=== PATIENT | male | born 1930 | race Caucasian/White ===

== ENCOUNTER → 2016-04-10 | Outpatient (CLI) | payer MEDICARE, OTHER ==
[~2016-04-10] MED LIST: AMOXICILLIN875 MG PO; ATIVAN 0.50.5 MG/TAB PO; ATIVAN 1MG T1 MG/TAB PO; AVAPRO TAB150 MG/TAB PO; AVAPRO300 M1 PO; BETAPACE 80MG80 MG PO; CARDIZEM CD 18180 MG PO; CARTIA XT120 MG PO; CARTIA XT180 MG PO; CEPHALEXIN250 M1 PO; CEPHALEXIN500 M1 PO; CIPRO 250MG TA250 MG PO; CORDARONE200 MG/TAB PO; COUMADIN 4MG4 MG/TAB PO; COUMADIN 5MG5 MG/TAB PO; COUMADIN PO; COUMADIN3 MG PO; COUMADIN4 MG PO; COZAAR100 MG PO; DILTIAZEM CD120 MG PO; DIOVAN160 M1 PO; ELIQUIS 5MG PO; FLOMAX 0.40.4 MG/CAP PO; GLUCOSAMINE PO; HCTZ 25MG25 MG PO; IRON TABLETS325 MG PO; IRON250 MG PO; LASIX 20MG TABL20 MG PO; LASIX 40MG TABL40 MG PO; LOVENOX 8080 MG/0.8 SQ; METOPROLOL SUCC50 M2 PO; NORVASC 5MG5 MG/TAB PO; NORVASC5 MG PO; PACERONE400 MG PO; PRIL40 PO; PRILOSEC 20MG20 MG PO; PRILOSEC40 MG PO; PROAIR HFA0.09 MG/AC IH; REMERON SOLTAB15 MG PO; TAMBOCOR 1100 MG/TAB PO; TIKOSYN0.5 MG PO; TYLENOL 500MG500 MG PO; ULTRAM 50MG TAB50 MG PO; VITAMIN C500 MG PO; VTAMINC250TA; VTAMINC250TA PO; WARFARIN4 MG PO; XARELTO20 MG PO; ZOLOFT 25MG25 MG PO; ZOLOFT 50MG50 MG PO
== END ==
LOC: COL.VAS 10:00
DX: M79.662 Pain in left lower leg (principal); M79.661 Pain in right lower leg; M79.89 Other specified soft tissue disorders

== ENCOUNTER 2016-05-16 08:11 | Day surgery (SDC) | payer MEDICARE, OTHER ==
[2007-03-02 17:04] VITALS: BP 148/93
[2016-05-16] VITALS (13 sets, daily range): BP systolic 147–177; BP diastolic 87–128; PULSE 69–82; TEMP 97.5
[~2016-05-16] VITALS: Ht 182.9 cm; Wt 77.3 kg
[~2016-05-16 08:11] MED LIST changes: -ELIQUIS 5MG PO; -IRON TABLETS325 MG PO
[2016-05-16 08:57] LABS: INR 1.7 (0.8-3.0); PROTHROMBIN TIME 19.1 SECONDS (9.7-12.8)
[2016-05-16] MEDS ORDERED: ELIQUIS 5MG PO (09:08)
[2016-05-16 09:10] LABS: POTASSIUM 4.3 mmol/L (3.4-5.0)
[2016-05-16 09:45] LABS: THYROID STIMULATING HORMONE 5.35 uIU/mL (0.465-4.680)
== END 2016-05-16 12:10 | disposition home or self-care (01) ==
LOC: EUO 08:11
PROVIDERS: Internal Medicine Interventional Cardiology
DX: I48.91 Unspecified atrial fibrillation (principal); I34.0 Nonrheumatic mitral (valve) insufficiency; I36.1 Nonrheumatic tricuspid (valve) insufficiency; Z95.0 Presence of cardiac pacemaker; Z87.891 Personal history of nicotine dependence
CPT/HCPCS: J2250; J3010; J7030

== ENCOUNTER 2016-05-31 13:07 | Emergency (ER) | payer MEDICARE, OTHER ==
[2007-03-02 17:04] VITALS: BP 148/93
[~2016-05-31] VITALS: Ht 182.9 cm; Wt 70.9 kg
[~2016-05-31 13:07] MED LIST changes: +ELIQUIS 5MG PO
[2016-05-31 13:09] VITALS: BP 138/78; TEMP 97.8
[2016-05-31] MEDS ORDERED: IRON TABLETS325 MG PO (13:47)
[2016-05-31 15:36] LABS: BASO % 0.7 % (0.0-2.0); EOS # 0.1 (0.0-0.7); EOS % 1.2 % (0-4.0); GRAN # 3.6 (1.4-6.5); GRAN % 59.3 % (42.2-75.2); LYMPH # 1.6 (1.2-3.4); LYMPH % 26.5 % (20.0-51.0); MEAN CELL VOLUME 85 fl (80.0-100.0); MEAN CORPUSCULAR HEMOGLOBIN 27 pg (27.0-31.0); MEAN CORPUSCULAR HGB CONC 31 g/dl (33.0-37.0); MEAN PLATELET VOLUME 9.1 fl (7.4-10.4); MONO # 0.7 (0.1-0.6); PLATELET COUNT 228 K/mm3 (130-400); RED BLOOD COUNT 4.46 M/mm3 (4.20-5.60); REDCELL DISTRIBUTION WIDTH-CV 18.3 % (11.5-14.5)
[2016-05-31 15:37] LABS: HEMOGLOBIN 11.9 g/dl (13.5-18.0)
[2016-05-31 15:50] LABS: CALCIUM 10.2 mg/dL (8.4-10.2); CREATININE, serum 1.25 mg/dL (0.66-1.25); POTASSIUM 4.6 mmol/L (3.4-5.0)
[2016-05-31 16:25] VITALS: PULSE 73
== END 2016-05-31 16:25 | disposition home or self-care (01) ==
LOC: COL.ER 13:07
PROVIDERS: Emergency Medicine
DX: S51.812A Laceration without foreign body of left forearm, initial encounter (principal); S61.411A Laceration without foreign body of right hand, initial encounter; R51 Headache; W06.XXXA Fall from bed, initial encounter; Y92.122 Bedroom in nursing home as the place of occurrence of the external cause; Z79.01 Long term (current) use of anticoagulants; Z23 Encounter for immunization

== ENCOUNTER 2016-06-02 09:20 | Emergency (ER) | payer MEDICARE, OTHER ==
[2007-03-02 17:04] VITALS: BP 148/93
[~2016-06-02] VITALS: Ht 182.9 cm; Wt 75.0 kg
[~2016-06-02 09:20] MED LIST changes: +IRON TABLETS325 MG PO
[2016-06-02 09:53] VITALS: BP 96/68; PULSE 75; TEMP 97.9
== END 2016-06-02 10:42 | disposition home or self-care (01) ==
LOC: COL.ER 09:20
DX: S51.812D Laceration without foreign body of left forearm, subsequent encounter (principal); S41.111D Laceration without foreign body of right upper arm, subsequent encounter; X58.XXXD Exposure to other specified factors, subsequent encounter

== ENCOUNTER → 2016-06-12 | Emergency (ER) | payer MEDICARE, OTHER ==
[2016-06-12 13:57] VITALS: BP 145/89; PULSE 83; TEMP 97.8
== END | disposition home or self-care (01) ==
LOC: COL.ER 13:53
DX: Z48.01 Encounter for change or removal of surgical wound dressing (principal)

== ENCOUNTER 2016-06-30 13:10 | Emergency (ER) | payer MEDICARE, OTHER ==
[2016-06-30 13:40] VITALS: PULSE 86
== END 2016-06-30 13:40 | disposition home or self-care (01) ==
LOC: COL.ER 13:10
DX: Z48.02 Encounter for removal of sutures (principal)

== ENCOUNTER → 2018-01-21 | Outpatient (CLI) | payer MEDICARE, OTHER | LOC: COL.RAD 11:00 | DX: J47.9 Bronchiectasis, uncomplicated (principal); I51.7 Cardiomegaly; Z95.0 Presence of cardiac pacemaker ==

== ENCOUNTER → 2018-02-05 | Outpatient (CLI) | payer MEDICARE, OTHER | LOC: COL.PUL 07:55 | DX: R06.02 Shortness of breath (principal); Z87.891 Personal history of nicotine dependence ==

== ENCOUNTER 2018-10-20 10:37 | Day surgery (SDC) | payer MEDICARE, OTHER ==
[2007-03-02 17:04] VITALS: BP 148/93
[~2018-10-20] VITALS: Ht 185.4 cm; Wt 81.3 kg
[2018-10-20] VITALS (11 sets, daily range): BP systolic 128–157; BP diastolic 81–95; PULSE 70–92; TEMP 68.2–98.7
[2018-10-20] MEDS ORDERED: ELIQUIS 2.5 PO (11:48)
[2018-10-20] MEDS ORDERED: LASIX 40MG TABL40 MG PO (11:49)
[2018-10-20] MEDS ORDERED: COZAAR 50MG50 MG/TAB PO (11:51)
[2018-10-20] MEDS ORDERED: LOPRESSOR 225 MG/TAB PO (11:52)
[2018-10-20] MEDS ORDERED: REMERON 15M15 MG/TA1 PO (11:53)
[2018-10-20] MEDS ORDERED: PROBIOTIC-SUNMARK PO (11:55)
--- NOTE | 2018-10-20 20:00 | NUR ---
HS meds all reviewed and given. Refused lasix as is too late in the evening to take. Med held acknowleged to pharmacy to change times to as he takes at home. Declines pain med at this time. Incision abdomin with swif set and approximated some bruising noted. Ambulates to sink and back to chair. Items given for oral care.
--- NOTE | 2018-10-20 22:00 | NUR ---
Rests in bed with eyes closed. Respirations with ease.
--- NOTE | 2018-10-21 02:19 | NUR ---
Patient reports just woke up anxious. Reports 5/10 headache and normally doesn't get headaches. Has requested not to take pain med but offered tylenol and given. Hand senior applications developer equal. Leg strength lifts and holds briefly/difficult because of abdominal incisional pain. Speech clear and patient is alert and oriented x 4. VSS. BP 128/81 HRR. Lungs CTA. Reviewed will reevaluate headache in 1 hour and recheck vitals in 2 hours. SCD's on and instructed to call and staff will remove prior to getting up.
--- NOTE | 2018-10-21 02:24 | NUR ---
Patient has been resting on left side with eyes closed on hourly rounds. CPAP on.
--- NOTE | 2018-10-21 03:00 | NUR ---
Patient rests with eyes closed. Respirations with ease.
[2018-10-21 04:11] VITALS: BP 138/77; PULSE 81; TEMP 98
--- NOTE | 2018-10-21 04:27 | NUR ---
Patient woke up and states didn't know where he was at first. "Reaching for my steering wheel and couldn't reach it". Patient oriented except to time of day states 4pm instead of 4am. Hand social science analyst equal speech clear. INT bleeding and area cleansed with alcohol and new tegerm applied followed by coban. Denies headache at this time. petroleum terminal plant operator memory intact-reminices. VSS. Denies dizziness. Bed alarm applied at this time. "just not real steady on my feet" "back problems".
--- NOTE | 2018-10-21 04:39 | NUR ---
Nurse had patient sit up and stand/ambulate short distance and does without difficulty/no drift or weakness noted. Leg strength equal.
--- NOTE | 2018-10-21 05:15 | NUR ---
Patient resting with eyes closed. Awakened for med and returns to resting.
[2018-10-21 07:45] VITALS: BP 135/75; PULSE 80; TEMP 97.7
--- NOTE | 2018-10-21 08:00 | NUR ---
Patient sitting up in recliner, alert and oriented x 3. Daughter at bedside. Patient requested pain medications for abdominal pain, medications given per orders. Incision to left quadrant with edges well approximated. Patient states he is passing gas. Has been up ambulating with stand by assist, steady gait. Denies further needs at this time.
--- NOTE | 2018-10-21 10:40 | NUR ---
Discharge instructions provided to patient. Educated on signs and symptoms of infection and when to call provider. Provided patient with follow up appointment. All questions answered. Verbalized understanding. Denies further needs at this time. Patient out by wheelchair with surgical staff and daughter. INT to left hand discontinued, catheter tip intact. Pressure held to site and pressure dressing applied.
== END 2018-10-21 10:40 | disposition home or self-care (01) ==
LOC: SDCO 10:37 → SURG 13:25 → SDCO 10-21 10:40
DX: K40.90 Unilateral inguinal hernia, without obstruction or gangrene, not specified as recurrent (principal); D17.6 Benign lipomatous neoplasm of spermatic cord; E78.00 Pure hypercholesterolemia, unspecified; G47.33 Obstructive sleep apnea (adult) (pediatric); I11.0 Hypertensive heart disease with heart failure; I50.9 Heart failure, unspecified; J44.9 Chronic obstructive pulmonary disease, unspecified; I48.0 Paroxysmal atrial fibrillation; K21.9 Gastro-esophageal reflux disease without esophagitis; Z85.51 Personal history of malignant neoplasm of bladder; Z85.828 Personal history of other malignant neoplasm of skin; Z86.73 Personal history of transient ischemic attack (TIA), and cerebral infarction without residual deficits; Z96.651 Presence of right artificial knee joint; Z95.0 Presence of cardiac pacemaker; Z80.0 Family history of malignant neoplasm of digestive organs; Z79.01 Long term (current) use of anticoagulants
CPT/HCPCS: OP; C1781; J0690; J2704; J3010; J7120

== ENCOUNTER → 2020-03-08 | Outpatient (CLI) | payer MEDICARE, OTHER ==
[~2020-03-08] MED LIST changes: +COZAAR 50MG50 MG/TAB PO; +ELIQUIS 2.5 PO; +LOPRESSOR 225 MG/TAB PO; +PROBIOTIC-SUNMARK PO; +REMERON 15M15 MG/TA1 PO
[2020-03-08 16:02] LABS: CALCIUM 10.1 mg/dL (8.4-10.2); CREATININE, serum 2.47 (0.66-1.25); POTASSIUM 4.2 mmol/L (3.4-5.0)
[2020-03-08 16:14] LABS: TROPONIN-I 0.012 ng/mL (0.000-0.035)
== END ==
LOC: ZCOL.LAB 15:43
PROVIDERS: Nurse Practitioner
DX: R60.9 Edema, unspecified (principal); R07.89 Other chest pain; R63.1 Polydipsia

== ENCOUNTER → 2020-04-19 | Outpatient (CLI) | payer MEDICARE, OTHER ==
[2020-04-19 15:35] LABS: INR 1.7 (0.8-3.0); PROTHROMBIN TIME 19.2 SECONDS (9.7-12.8)
== END ==
LOC: ZCOL.LAB 15:13
PROVIDERS: Nurse Practitioner
DX: I50.22 Chronic systolic (congestive) heart failure (principal)

== ENCOUNTER 2020-04-24 18:07 | Inpatient (IN) | payer MEDICARE, OTHER ==
[2007-03-02 17:04] VITALS: BP 148/93
[2020-04-24] VITALS (109 sets, daily range): BP systolic 120; BP diastolic 89; PULSE 82; TEMP 98.1; O2SAT 90–100
[~2020-04-24] VITALS: Ht 185.4 cm; Wt 87.6 kg
--- NOTE | 2020-04-24 19:00 | NUR ---
Patient was direct admit to unit for Afib w/ RVR. Arrive to unit in a wheelchair accompanied by daughter, Victoria. biscuit factory worker notified Dr. Slade of patient arrival to unit. Will resume care at this time.
--- NOTE | 2020-04-24 20:00 | NUR ---
Nurse completing admission assessment and obtaining information from patient and patient daughter Victoria. Nurse received call from Blanca Sheridan APRN who stated she would be putting in orders for patient as no orders had been received yet. Nurse asked CERTIFIED LEGAL SECRETARY SPECIALIST if Dr. Slade's office would like hospitalist to join patients case. CERTIFIED LEGAL SECRETARY SPECIALIST stated they did not wish for hospitalist to consult on case. Nurse gave update on patient status. CERTIFIED LEGAL SECRETARY SPECIALIST stated Dr. Slade would not be coming by to see patient but CERTIFIED LEGAL SECRETARY SPECIALIST would be by "first thing in the morning."
--- NOTE | 2020-04-24 20:28 | NUR ---
Dr. Slade arrived on unit to examine patient and spoke to both patient and patients daughter. Dr. Slade stated he would like hospitalist to admit and join patient case. No orders were placed or received at this time.
--- NOTE | 2020-04-24 21:00 | NUR ---
Nurse attempted to place an IV in patient right forearm and had two unsuccessful attempts. Nurse was able to place 22g IV in patients LW successfully and 20g in LF. IV's were able to flush and had blood return. IVs remained saline locked at this time.
--- NOTE | 2020-04-24 21:17 | NUR ---
Received call from STEFANIE Rios who wanted to clarify that orders had been received on patient. Nurse stated she had received orders for dobutamine and nitro gtt to be started.
[2020-04-24 21:25] LABS: BASO # 0.1 (0.0-0.2); BASO % 1.1 % (0.0-2.0); EOS # 0.3 (0.0-0.7); EOS % 4.6 % (0-4.0); GRAN # 3.3 (1.4-6.5); GRAN % 58.5 % (42.2-75.2); LYMPH # 1.1 (1.2-3.4); LYMPH % 19.4 % (20.0-51.0); MEAN CELL VOLUME 90 fl (80.0-100.0); MEAN CORPUSCULAR HGB CONC 31 g/dl (33.0-37.0); MEAN PLATELET VOLUME 9.8 fl (7.4-10.4); MONO # 0.9 (0.1-0.6); MONO % 16.2 % (1.7-9.3); PLATELET COUNT 220 K/mm3 (130-400); RED BLOOD COUNT 3.61 M/mm3 (4.20-5.60); REDCELL DISTRIBUTION WIDTH-CV 17.6 % (11.5-14.5)
[2020-04-24 21:26] LABS: HEMATOCRIT 32.4 % (42.0-52.0); HEMOGLOBIN 9.9 g/dl (13.5-18.0); MEAN CORPUSCULAR HEMOGLOBIN 27 pg (27.0-31.0)
[2020-04-24 21:32] LABS: CALCIUM 10.3 mg/dL (8.4-10.2); CREATININE, serum 2.35 (0.66-1.25); POTASSIUM 5.1 mmol/L (3.4-5.0)
--- NOTE | 2020-04-24 23:20 | NUR ---
Patient transferred for CT via wheelchair with portable monitor hooked up for CT of abdomen and pelvis per Dr. Slade's orders for abdominal distention. Patient returned to ICU unit via wheelchair at 2335.
[2020-04-25] VITALS (664 sets, daily range): BP systolic 88–141; BP diastolic 57–94; PULSE 79–111; TEMP 97.4–98.1; O2SAT 81–100
--- NOTE | 2020-04-25 01:00 | NUR ---
Nurse notified YRIS Avery of patient potassium level of 5.1. Received orders for 15g of kayexalate.
--- NOTE | 2020-04-25 01:38 | NUR ---
Nurse called [facility] to verify if dobutamine and nitro were able to be y-sited and administered through same peripheral line. Nurse stated lexicomp said medications were compatible in certain circumstances based off certain concentrations. Notified pharmacy that patient would also be receiving IV abx. Pharmacy stated dobutamine and nitro should be kept seperate.
[2020-04-25 03:36] LABS: ARTERIAL BLD GAS O2 SATURATION 94.8 % (92-100); ARTERIAL BLD GAS TCO2 CT 20.5; ARTERIAL BLOOD GAS BASE EXCESS -3.9 (-2-2); ARTERIAL BLOOD GAS HCO3 19.6 meq/L (22-26); ARTERIAL BLOOD GAS PO2 74.9 mmHg (80-100); ARTERIAL BLOOD GAS pH 7.43 (7.35-7.45)
--- NOTE | 2020-04-25 04:39 | NUR ---
Received orders for nieto catheter. Nurse placed 16F nieto Catheter, advanced catheter until urine return noted and then catheter balloon instilled with 10mls of saline and secured to patient leg. Patient tolerated well.
[2020-04-25 04:42] LABS: BASO % 0.7 % (0.0-2.0); EOS # 0.3 (0.0-0.7); EOS % 4.6 % (0-4.0); GRAN % 50.8 % (42.2-75.2); LYMPH # 1.8 (1.2-3.4); LYMPH % 29.9 % (20.0-51.0); MEAN CELL VOLUME 90 fl (80.0-100.0); MEAN CORPUSCULAR HGB CONC 31 g/dl (33.0-37.0); MEAN PLATELET VOLUME 9.6 fl (7.4-10.4); MONO # 0.8 (0.1-0.6); MONO % 13.8 % (1.7-9.3); PLATELET COUNT 212 K/mm3 (130-400); REDCELL DISTRIBUTION WIDTH-CV 17.6 % (11.5-14.5)
[2020-04-25 04:46] LABS: HEMATOCRIT 29.7 % (42.0-52.0); HEMOGLOBIN 9.1 g/dl (13.5-18.0); MEAN CORPUSCULAR HEMOGLOBIN 28 pg (27.0-31.0)
[2020-04-25 04:54] LABS: ALBUMIN 3.2 gm/dL (3.5-5.0); BILIRUBIN,TOTAL 0.9 mg/dL (0.0-1.0); CALCIUM 10.3 mg/dL (8.4-10.2); CREATININE, serum 2.31 (0.66-1.25); POTASSIUM 4.6 mmol/L (3.4-5.0); TOTAL PROTEIN 6.3 gm/dL (6.4-8.2)
--- NOTE | 2020-04-25 06:28 | NUR ---
Dr. Slade arrived at unit and asked for update on patient status. Physician updated. No new orders at this time.
--- NOTE | 2020-04-25 06:28 | NUR ---
Dr. Slade at patient bedside. Nurse updated physician on patient status. Physician stated to continue with plan of care. No new orders at this time.
--- NOTE | 2020-04-25 07:00 | NUR ---
PT RESTING IN BED. VSS. PT ON NITRO DRIP AND DOUBUTAMIN RUNNING. VSS. WILL CONTINUE TO MONITOR.
--- NOTE | 2020-04-25 11:18 | NUR ---
MESSAGE LEFT FOR FOR CONSULT. WILL FOLLOW UP.
[2020-04-25 14:37] LABS: COLLECTION METHOD CATHETER
[2020-04-25 15:03] LABS: MUCOUS Present /lpf; PH 5 (5-8); SQUAMOUS EPITHELIAL 0-2 /hpf; URINE APPEARANCE Hazy; URINE BACTERIA Rare /hpf; URINE BILIRUBIN Negative (NEGATIVE); URINE BLOOD 2+ (NEGATIVE); URINE COLOR Yellow; URINE GLUCOSE Negative (NEGATIVE); URINE KETONE Negative (NEGATIVE); URINE LEUKOCYTE ESTERASE Negative (NEGATIVE); URINE NITRATE Negative (NEGATIVE); URINE PROTEIN(semi-quant) Negative (NEGATIVE); URINE RBC 20-50 /hpf; URINE UROBILINOGEN Negative (NEGATIVE); URINE WBC 0-2 /hpf
--- NOTE | 2020-04-25 16:03 | NUR ---
forestry worker met with patient and contacted daughter, Victoria, , and completed initial intake assessment. Patient resides in an independent living apartment at [facility]. Patient became ill and spent 3/4 and 3/5 in [place] at [facility] after a medical procedure. Because family could not visit with patient in [facility], patient went to stay with his daughter Victoria. Patient had increased weakness and an inability to be mobile at Victoria's home. forestry worker discussed options for rehab upon discharge. Will await physical therapy evaluation and recommendations and call Victoria on 04/26 to discuss best options for rehab. Patient's primary care provider is Dr Hodge.
--- NOTE | 2020-04-25 20:05 | NUR ---
Patient assessment complete and charted. Patient given full bed bath with liner change. IV left forearm bloody-redressed at this time. Given PRN tramadol for headache. Will closelym monitor.
[2020-04-25 22:23] LABS: CALCIUM 9.9 mg/dL (8.4-10.2); CREATININE, serum 2.24 (0.66-1.25); MAGNESIUM 2.2 mg/dL (1.6-2.3); POTASSIUM 4.2 mmol/L (3.4-5.0)
--- NOTE | 2020-04-25 23:40 | NUR ---
214: Natalya WATTS contacted. Patient having frequent PJCs up to 6 beats. Labs/EKG ordered. 2299: Natalya WATTS notified labs and EKG resulted. 2319: Per Natalya WATTS contact Leonor regarding patient rhythm 2324: Per Dr. Amanda- decrease dobutamine gtt and discuss with cardiology in am.
[2020-04-26] VITALS (548 sets, daily range): BP systolic 62–126; BP diastolic 48–84; PULSE 111–141; TEMP 97.6–98.1; O2SAT 88–100
--- NOTE | 2020-04-26 01:03 | NUR ---
Patient given PRN tramadol for headache. Will assess decreasing nitro drip
--- NOTE | 2020-04-26 04:43 | NUR ---
Patient tachy after breathing tx at 0330. Patient rates 120-140. Spoke with Natalya WATTS. Call Leonor. Spoke with Dr. Velasco. Monitor for now. Possibly give half dose of albuterol with next treatment.
[2020-04-26 06:44] LABS: BASO % 0.6 % (0.0-2.0); EOS # 0.2 (0.0-0.7); EOS % 2.7 % (0-4.0); GRAN # 4.5 (1.4-6.5); GRAN % 67.2 % (42.2-75.2); LYMPH # 0.9 (1.2-3.4); LYMPH % 13.5 % (20.0-51.0); MEAN CELL VOLUME 92 fl (80.0-100.0); MEAN CORPUSCULAR HGB CONC 30 g/dl (33.0-37.0); MEAN PLATELET VOLUME 9.4 fl (7.4-10.4); MONO # 1.1 (0.1-0.6); MONO % 15.7 % (1.7-9.3); PLATELET COUNT 209 K/mm3 (130-400); RED BLOOD COUNT 2.98 M/mm3 (4.20-5.60); REDCELL DISTRIBUTION WIDTH-CV 17.8 % (11.5-14.5)
--- NOTE | 2020-04-26 06:44 | NUR ---
Patient remains tachy this AM. Leonor was notified and continue to monitor orders given. IV dobutamine and nitro continued as ordered. Will continue to monitor.
[2020-04-26 06:46] LABS: HEMATOCRIT 27.3 % (42.0-52.0); HEMOGLOBIN 8.2 g/dl (13.5-18.0); MEAN CORPUSCULAR HEMOGLOBIN 28 pg (27.0-31.0)
[2020-04-26 07:00] LABS: CALCIUM 9.8 mg/dL (8.4-10.2); CREATININE, serum 2.22 (0.66-1.25); POTASSIUM 4.1 mmol/L (3.4-5.0)
--- NOTE | 2020-04-26 07:20 | NUR ---
RECEIVED REPORT FROM JENNY JURADO. PATIENT RESTING WITH EYES CLOSED. SEE IV TITRATION FLOWSHEET. TWO SITES CONFIRMED IN LEFT FOREARM. JACOB CATHETER IN PLACE, PATENT AND DRAINING TO GRAVITY. VSS. CALL LIGHT WITHIN REACH.
--- NOTE | 2020-04-26 07:39 | NUR ---
Report given to JENNY James
--- NOTE | 2020-04-26 07:53 | NUR ---
SPOKE TO STEFANIE HUERTA REGARDING HR IN 140s. ORDER RECEIVED AFTER CONFIRMING WITH RANP TO TITRATE NITRO FIRST AND THEN DOBUTAMINE FOLLOWING.
--- NOTE | 2020-04-26 07:55 | NUR ---
ES AT BEDSIDE. SPOKE ABOUT POSSIBILITY OF TRANSFERRING TO [facility] IN A FEW DAYS.
--- NOTE | 2020-04-26 08:05 | NUR ---
DISCUSSED MEDICATIONS FOR BP WITH RANP. SEE eMAR FOR NEW MEDICATION ORDERS.
--- NOTE | 2020-04-26 08:15 | NUR ---
DR. LEDEZMA AT BEDSIDE. ORDERED TO Karri MAN.
--- NOTE | 2020-04-26 08:19 | NUR ---
CALLED DR. CHAMBERLAIN REGARDING CONSULT. NO ANSWER. WILL FOLLOW UP IN ABOUT AN HOUR.
--- NOTE | 2020-04-26 10:15 | NUR ---
DR. CHAMBERLAIN AT BEDSIDE. ORDERS TO HAVE PHARMACY DOSE DIGOXIN. CONCERNS REGARDING TOXICITY.
--- NOTE | 2020-04-26 11:20 | NUR ---
DR. CARLSON AT BEDSIDE. WANTED TO LOOK INTO TRANSFER TO [facility] WITH DR. TOVAR. WILL RELAY TO DR. TOVAR.
--- NOTE | 2020-04-26 13:20 | NUR ---
SPOKE TO DR. TOVAR REGARDING WHO WAS HANDLING TRANSFER TO [facility]. SAID HE WAS ALREADY STARTED ON TRANSFER.
--- NOTE | 2020-04-26 13:27 | NUR ---
Strategic Sourcing Consultant staffed with the patient's nurse. The patient may possibly be transferring to [facility] in in the next days. There has not been acceptance.
--- NOTE | 2020-04-26 13:39 | NUR ---
SPOKE TO PATIENT'S DAUGHTERZOE REGARDING CURRENT PATIENT STATUS.
--- NOTE | 2020-04-26 16:39 | NUR ---
[facility] CALLED, STATED THEY HAVE A BED. GAVE REPORT TO ANGELES PIERCE, JENNY AND EFRAIN (TRANSFER NURSE). ALL QUESTIONS ADDRESSED.
--- NOTE | 2020-04-26 19:03 | NUR ---
REPORT GIVEN TO DI POMPA, SEED TESTER WITH [facility] REGARDING PATIENT'S TRANSFER TO [facility] IN [place]. PATIENT ASSISTED TO EMS STRETCHER. PATIENT WAS ON 2L VIA NC. NO CHANGE IN IV DRIPS PRIOR TO DEPARTURE. CARE TRANSFERRED TO EMS AT THIS TIME. ALL PERSONAL BELONGINGS SENT WITH ZOE, DAUGHTER.
--- NOTE | 2020-04-27 09:51 | NUR ---
The patient was transferred to [facility] in on 04/26.
== END 2020-04-26 19:03 | disposition short-term general hospital (02) | DRG 291 ==
LOC: ICU 18:07
PROVIDERS: Hospitalist; Internal Medicine Interventional Cardiology; Internal Medicine Nephrology; Nurse Practitioner; Nurse Practitioner Family; Student in an Organized Health Care Education/Training Program; ADMIT Student in an Organized Health Care Education/Training Program
DX: I13.0 Hypertensive heart and chronic kidney disease with heart failure and stage 1 through stage 4 chronic kidney disease, or unspecified chronic kidney disease (principal); I50.43 Acute on chronic combined systolic (congestive) and diastolic (congestive) heart failure; N17.9 Acute kidney failure, unspecified; R18.8 Other ascites; I34.0 Nonrheumatic mitral (valve) insufficiency; I48.0 Paroxysmal atrial fibrillation; F32.9 Major depressive disorder, single episode, unspecified; K21.9 Gastro-esophageal reflux disease without esophagitis; E87.5 Hyperkalemia; I27.20 Pulmonary hypertension, unspecified; N18.31 Chronic kidney disease, stage 3a; G47.33 Obstructive sleep apnea (adult) (pediatric); E83.52 Hypercalcemia; D63.1 Anemia in chronic kidney disease; I95.9 Hypotension, unspecified; Z79.01 Long term (current) use of anticoagulants; Z96.651 Presence of right artificial knee joint; Z95.0 Presence of cardiac pacemaker; Z87.891 Personal history of nicotine dependence; Z86.73 Personal history of transient ischemic attack (TIA), and cerebral infarction without residual deficits
CPT/HCPCS: 99223-AI; 99233-AI; A9284; J0456; J0696; J1250; J1644; J7050

== ENCOUNTER → 2020-06-06 | Outpatient (CLI) | payer MEDICARE, OTHER ==
[2020-06-06 12:00] LABS: BASO # 0.1 (0.0-0.2); BASO % 1.1 % (0.0-2.0); EOS # 0.2 (0.0-0.7); EOS % 4.3 % (0-4.0); GRAN % 54.7 % (42.2-75.2); HEMATOCRIT 30.1 % (42.0-52.0); HEMOGLOBIN 8.8 g/dl (13.5-18.0); LYMPH # 1.5 (1.2-3.4); LYMPH % 27.8 % (20.0-51.0); MEAN CELL VOLUME 97 fl (80.0-100.0); MEAN CORPUSCULAR HEMOGLOBIN 28 pg (27.0-31.0); MEAN CORPUSCULAR HGB CONC 29 g/dl (33.0-37.0); MEAN PLATELET VOLUME 9.7 fl (7.4-10.4); MONO # 0.7 (0.1-0.6); MONO % 11.9 % (1.7-9.3); PLATELET COUNT 215 K/mm3 (130-400); RED BLOOD COUNT 3.09 M/mm3 (4.20-5.60); REDCELL DISTRIBUTION WIDTH-CV 23.6 % (11.5-14.5)
[2020-06-06 12:02] LABS: CALCIUM 9.3 mg/dL (8.4-10.2); CREATININE, serum 2.74 (0.66-1.25); POTASSIUM 4.3 mmol/L (3.4-5.0)
== END ==
LOC: ZCOL.LAB 11:32
PROVIDERS: Internal Medicine
DX: D63.1 Anemia in chronic kidney disease (principal); N18.9 Chronic kidney disease, unspecified; N17.9 Acute kidney failure, unspecified